=== PATIENT | female | born 1935 | race Caucasian/White ===

== ENCOUNTER 2019-10-15 11:43 | Emergency (ER) | payer MEDICAID ==
[~2019-10-15] VITALS: Ht 154.9 cm; Wt 45.4 kg
[2019-10-15 11:54] VITALS: Ht 154.9 cm; Wt 45.4 kg
[2019-10-15 17:00] VITALS: BP 167/75
== END 2019-10-15 17:00 | disposition home or self-care (01) ==
LOC: ED 11:43
DX: M54.5 Low back pain (principal)
CPT/HCPCS: J1885